=== PATIENT | female | born 1970 ===

== ENCOUNTER 2017-10-06 22:23 | Observation (INO) | payer SELFPAY ==
[2017-10-06] MEDS ORDERED: Sodium Chloride 0.9% 1,000 ML IV STA (22:50)
[2017-10-06] MEDS ORDERED: Iohexol 240 (50 ml) PO ONE (22:50)
--- NOTE | 2017-10-06 22:56 | ED PDOC ---
HPI: Abdomen Time Seen by Provider: 10/06/17 22:36 Chief Complaint (Nursing): Abdominal Pain Chief Complaint (Provider): abdominal pain History Per: Patient History/Exam Limitations: no limitations Onset/Duration Of Symptoms: Days (2) Current Symptoms Are (Timing): Still Present Location Of Pain/Discomfort: RLQ Additional History Per: Patient Additional Complaint(s): 46 y/o female presents with abdominal pain x 2 days. States pain initially started in epigastric/periumbilical area and has since traveled to right lower abdomen as of tonight. Denies fever, nausea/vomiting, cough, chest pain, shortness of breath, palpitations, changes in bowel movements, urinary symptoms. Past Medical History Reviewed: Historical Data, Nursing Documentation, Vital Signs Vital Signs: Last Vital Signs Temp 98.9 F 10/06/17 22:27 Pulse 85 10/06/17 22:27 Resp 16 10/06/17 22:27 BP 142/82 10/06/17 22:27 Pulse Ox 100 10/07/17 02:11 - Medical History PMH: No Chronic Diseases - Surgical History Surgical History: No Surg Hx - Family History Family History: States: No Known Family Hx - Home Medications Home Medications: Ambulatory Orders Medication Instructions Recorded No Known Home Med 10/07/17 - Allergies Allergies/Adverse Reactions: Allergies Allergy/AdvReac Type Severity Reaction Status Date / Time No Known Allergies Allergy Verified 10/06/17 22:31 Review of Systems ROS Statement: Except As Marked, All Systems Reviewed And Found Negative Gastrointestinal: Positive for: Abdominal Pain Physical Exam - Reviewed Nursing Documentation Reviewed: Yes Vital Signs Reviewed: Yes - Physical Exam Appears: Positive for: Well, Non-toxic, No Acute Distress Head Exam: Positive for: ATRAUMATIC, NORMAL INSPECTION, NORMOCEPHALIC Skin: Positive for: Normal Color Eye Exam: Positive for: Normal appearance ENT: Positive for: Normal ENT Inspection Cardiovascular/Chest: Positive for: Regular Rate, Rhythm Respiratory: Positive for: Normal Breath Sounds Gastrointestinal/Abdominal: Positive for: Bowel Sounds, Soft, Tenderness ( epigastric, rlq) Back: Positive for: Normal Inspection Extremity: Positive for: Normal ROM Neurologic/Psych: Positive for: Alert, Oriented - Laboratory Results Result Diagrams: 10/06/17 23:25 10/06/17 23:25 - ECG ECG: Positive for: Viewed By Me (reviewed by ED attending) ECG Rhythm: Positive for: Sinus Rhythm O2 Sat by Pulse Oximetry: 100 Pulse Ox Interpretation: Normal - Radiology X-Ray: Viewed By Me X-Ray Interpretation: No Acute Disease - Progress ED Course And Treament: labs, urine, CT abd/pelvis, IV fluids, IV toradol EXAM: CT Abdomen and Pelvis With Intravenous Contrast EXAM DATE/TIME: Exam ordered 10/06/2017 10:51 PM CLINICAL HISTORY: 46 years old, female; Pain; Abdominal pain; Localized; Right; Additional info: Abd pain TECHNIQUE: Axial computed tomography images of the abdomen and pelvis with intravenous contrast. All CT scans at this facility use one or more dose reduction techniques, viz.: automated exposure control; ma/kV adjustment per patient size (including targeted exams where dose is matched to indication; i.e. head); or iterative reconstruction technique. Coronal and sagittal reformatted images were created and reviewed. CONTRAST: 90 mL of administered intravenously. COMPARISON: No relevant prior studies available. FINDINGS: Lower thorax: Atelectasis or fibrosis right base. Right-sided pulmonary nodules with some calcium. ABDOMEN: Liver: Fatty liver. Gallbladder and bile ducts: Unremarkable. No calcified stones. No ductal dilation. Pancreas: Unremarkable. No mass. No ductal dilation. Spleen: Unremarkable. No splenomegaly. Adrenals: Unremarkable. No mass. Kidneys and ureters: Unremarkable. No solid mass. No hydronephrosis. Stomach and bowel: Moderate fecal retention. Diverticulosis no diverticulitis. No obstruction. Appendix: The appendix measures 8 mm. there is mucosal enhancement and minimal periappendiceal stranding. Correlate clinically for signs of early appendicitis. PELVIS: Bladder: Unremarkable. No mass. Reproductive: Unremarkable as visualized. ABDOMEN and PELVIS: Intraperitoneal space: A sliver free fluid in the pelvis is presumably physiologic. No free air. Bones/joints: Degenerative change in the spine. No acute fracture. No dislocation. Soft tissues: Fat-containing umbilical hernia. Vasculature: Unremarkable. No abdominal aortic aneurysm. Lymph nodes: Unremarkable. No enlarged lymph nodes. IMPRESSION: The appendix measures 8 mm. there is mucosal enhancement and minimal periappendiceal stranding. Correlate clinically for signs of early appendicitis. Case discussed with Dr. Narvaez, Surgeon on-call; will place in observation under her service IV Cefoxitin dose ordered. Dr. Hill, enrollment services vice president on-call, aware. Disposition - Clinical Impression Clinical Impression: Appendicitis - Patient ED Disposition Is Patient to be Admitted: Yes - Disposition Disposition Time: 02:00 Condition: FAIR - Pt Status Changed To: Hospital Disposition Of: Observation
[2017-10-06] MEDS ORDERED: Iohexol 240 (50 ml) ONE (23:06)
[2017-10-06 23:32] LABS: BASO # 0.1 K/uL (0.0-0.2); BASO % 0.5 % (0.0-2.0); EOS # 0.7 K/uL (0.0-0.7); EOS % 6.1 % (0.0-4.0); HEMATOCRIT 39.3 % (34.0-47.0); LYMPH # 4.6 K/uL (1.0-4.3); LYMPH % 41.1 % (20.0-40.0); MEAN CELL VOLUME 95.1 fl (81.0-99.0); MEAN CORPUSCULAR HEMOGLOBIN 31.7 pg (27.0-31.0); MEAN CORPUSCULAR HGB CONC 33.3 g/dL (33.0-37.0); MEAN PLATELET VOLUME 8.7 fl (7.2-11.7); MONO # 0.5 K/uL (0.0-0.8); MONO % 4.7 % (0.0-10.0); NEUT # 5.3 K/uL (1.8-7.0); NEUT % 47.6 % (50.0-75.0); NRBC % 0.1 % (0.0-0.0); RED CELL DISTRIBUTION WIDTH 13.1 % (11.5-14.5); WHITE BLOOD COUNT 11.1 K/uL (4.8-10.8)
[2017-10-06 23:41] LABS: ALB/GLOB RATIO 1.2 (1.0-2.1); ALKALINE PHOSPHATASE 108 U/L (38-126); ALT/SGPT 100 U/L (9-52); AST/SGOT 46 U/L (14-36); BILIRUBIN,TOTAL 0.2 mg/dl (0.2-1.3); BLOOD UREA NITROGEN 6 mg/dl (7-17); CARBON DIOXIDE 24 mmol/L (22-30); CHLORIDE 104 mmol/L (98-107); GFR AFRICAN-AMERICAN > 60; GLUCOSE,RANDOM 140 mg/dL (65-105); LIPASE 86 U/L (23-300); POTASSIUM 3.7 MMOL/L (3.6-5.0); SODIUM 140 mmol/l (132-148); TOTAL PROTEIN 7.9 G/DL (6.3-8.2)
[2017-10-07 00:46] LABS: PARTIAL THROMBOPLASTIN TIME 36.6 Seconds (25.6-37.1)
[2017-10-07] MEDS ORDERED: Iohexol 300 100 ML IJ ONE (01:09)
[2017-10-07 01:45] LABS: URINE BILIRUBIN NEGATIVE (NEGATIVE); URINE COLOR YELLOW (YELLOW); URINE GLUCOSE (UA) NEGATIVE (Normal)
[2017-10-07 01:46] LABS: PH,URINE 6.5 (5.0-8.0); RBC URINE 2 /hpf (0-3); URINE BACTERIA FEW (<OCC); URINE BLOOD TRACE (NEGATIVE); URINE KETONE NEGATIVE (NEGATIVE); URINE LEUKOCYTE ESTERASE NEGATIVE Leu/uL (Negative); URINE PROTEIN 30 mg/dL (NEGATIVE); WBC URINE 1 /hpf (0-5)
[2017-10-07] MEDS ORDERED: cefOXitin 2 GM in Sodium Chloride 0.9% 100 ML IVPB STA (02:14)
[2017-10-07] MEDS: Sodium Chloride 0.9% 1,000 ML IV SCH ×2 (02:51→11:17)
--- NOTE | 2017-10-07 07:52 | CP.PCM.HP ---
History of Present Illness - History of Present Illness History of Present Illness: General surgery H & P for Dr Raymond Valdez, PGY-1 Pt S & E at bedside. 46F w/no sig PMH admitted for abdominal pain x 2 days. Pain started in epigastric region, moved to periumbilical and RLQ. Pain is moderate-severe, intermittent, non radiating. Denies N & V, F &C, chest pain, SOB, palpitations, changes in bowel habits, urinary symptoms, hunger, other symptoms. In ED- CT abdomen positive for appendix 8mm, mucosal enhancement, minimal periappendiceal stranding. Correlate clinically for signs of early appendicitis. PMH: Denies PSH: Denies All: NKDA SH: Denies ETOH, tobacco or illicit drug use Present on Admission - Present on Admission Any Indicators Present on Admission: No History of DVT/PE: No History of Uncontrolled Diabetes: No Urinary Catheter: No Decubitus Ulcer Present: No Review of Systems - Review of Systems All systems: reviewed and no additional remarkable complaints except - Constitutional Constitutional: absent: Chills, Fever - Gastrointestinal Gastrointestinal: Abdominal Pain. 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 mid chest surgery?-14 yrs ago - ANESTHESIA Hx Anesthesia: Yes Hx Anesthesia Reactions: No Meds Allergies/Adverse Reactions: Allergies Allergy/AdvReac Type Severity Reaction Status Date / Time No Known Allergies Allergy Verified 10/06/17 22:31 Physical Exam - Constitutional Appears: Non-toxic, No Acute Distress - Head Exam Head Exam: ATRAUMATIC, NORMAL INSPECTION, NORMOCEPHALIC - Eye Exam Eye Exam: EOMI, Normal appearance - ENT Exam ENT Exam: Mucous Membranes Moist, Normal Exam - Neck Exam Neck exam: Positive for: Full Rom, Normal Inspection - Respiratory Exam Respiratory Exam: NORMAL BREATHING PATTERN - Cardiovascular Exam Cardiovascular Exam: REGULAR RHYTHM, +S1, +S2 - GI/Abdominal Exam GI & Abdominal Exam: Guarding (RLQ), Soft, Tenderness (RLQ). absent: Distended (obese), Rigid - Extremities Exam Extremities exam: Positive for: normal inspection - Neurological Exam Neurological exam: Alert, CN II-XII Intact, Oriented x3 - Psychiatric Exam Psychiatric exam: Normal Affect, Normal Mood - Skin Skin Exam: Dry, Intact, Normal Color, Warm Results - Vital Signs Recent Vital Signs: Last Vital Signs Temp 98.1 F 10/07/17 03:59 Pulse 67 10/07/17 03:59 Resp 19 10/07/17 03:59 BP 147/88 10/07/17 03:59 Pulse Ox 96 10/07/17 03:59 - Labs Result Diagrams: 10/06/17 23:25 10/06/17 23:25 Labs: Laboratory Results - last 24 hr 10/06/17 10/06/17 10/06/17 23:14 23:25 23:25 WBC 11.1 H RBC 4.13 Hgb 13.1 Hct 39.3 MCV 95.1 MCH 31.7 H MCHC 33.3 RDW 13.1 Plt Count 198 MPV 8.7 Neut % (Auto) 47.6 L Lymph % (Auto) 41.1 H [place] % (Auto) 4.7 Eos % (Auto) 6.1 H Baso % (Auto) 0.5 Neut # 5.3 Lymph # 4.6 H [place] # 0.5 Eos # 0.7 Baso # 0.1 PT INR APTT Sodium 140 Potassium 3.7 Chloride 104 Carbon Dioxide 24 Anion Gap 16 BUN 6 L Creatinine 0.5 L Est GFR ( Amer) > 60 Est GFR (Non-Af Amer) > 60 Random Glucose 140 H Calcium 9.0 Total Bilirubin 0.2 AST 46 H ALT 100 H Alkaline Phosphatase 108 Total Protein 7.9 Albumin 4.4 Globulin 3.5 Albumin/Globulin Ratio 1.2 Lipase 86 Urine Color Yellow Urine Clarity Clear Urine pH 6.5 Ur Specific [place] 1.015 Urine Protein 30 Urine Glucose (UA) Negative Urine Ketones Negative Urine Blood Trace Urine Nitrate Negative Urine Bilirubin Negative Urine Urobilinogen 1.0 Ur Leukocyte Esterase Negative Urine RBC (Auto) 2 Urine Microscopic WBC 1 Ur Squamous Epith Cells 4 Urine Bacteria Few H 10/06/17 23:25 WBC RBC Hgb Hct MCV MCH MCHC RDW Plt Count MPV Neut % (Auto) Lymph % (Auto) [place] % (Auto) Eos % (Auto) Baso % (Auto) Neut # Lymph # [place] # Eos # Baso # PT 12.7 INR 1.1 APTT 36.6 Sodium Potassium Chloride Carbon Dioxide Anion Gap BUN Creatinine Est GFR ( Amer) Est GFR (Non-Af Amer) Random Glucose Calcium Total Bilirubin AST ALT Alkaline Phosphatase Total Protein Albumin Globulin Albumin/Globulin Ratio Lipase Urine Color Urine Clarity Urine pH Ur Specific [place] Urine Protein Urine Glucose (UA) Urine Ketones Urine Blood Urine Nitrate Urine Bilirubin Urine Urobilinogen Ur Leukocyte Esterase Urine RBC (Auto) Urine Microscopic WBC Ur Squamous Epith Cells Urine Bacteria Assessment & Plan - Assessment and Plan (Free Text) Assessment: 46F w/no sig PMH admitted for abdominal pain, likely due to appendicitis Plan: Admit to surgical service NPO Pain mgmt Anti-emetic IVF ABx Plan for OR later today DW attending Courtney, PGY-1 - Date & Time Date: 10/07/17 Time: 07:50 Decision To Admit - Pt Status Changed To: Hospital Disposition Of: Observation - . Bed Request Type: Med/Surg Admitting Physician: Lucrecia Narvaez
--- NOTE | 2017-10-07 08:20 | RAD ---
HISTORY: admit COMPARISON: No prior. TECHNIQUE: Chest PA and lateral FINDINGS: LUNGS: No acute infiltrate is identified bilaterally. Fibrotic changes in the left greater than right pulmonary apices suspicious for prior granulomatous disease. Clinically correlate. PLEURA: No significant pleural effusion identified. No pneumothorax apparent. CARDIOVASCULAR: Normal. OSSEOUS STRUCTURES: No significant abnormalities. VISUALIZED UPPER ABDOMEN: Normal. OTHER FINDINGS: None. IMPRESSION: Biapical fibrotic changes without definite acute infiltrate or pleural effusion appreciable. No pneumothorax bilaterally.
[2017-10-07] MEDS: Piperacillin/Tazobact 3.375 GM in Sodium Chloride 0.9% 100 ML IVPB SCH ×2 (10:00→16:19)
[2017-10-07] MEDS ORDERED: Influenza Vaccine 18yr & older 0.5 ML/45 MCG SYR IM ONE (10:00)
--- NOTE | 2017-10-07 11:21 | CT ---
PROCEDURE: CT Abdomen and Pelvis with contrast HISTORY: abd pain COMPARISON: None. TECHNIQUE: Contrast dose: Omnipaque 300, 90 cc Radiation dose: Total exam DLP = 603.73 mGy-cm. This CT exam was performed using one or more of the following dose reduction techniques: Automated exposure control, adjustment of the mA and/or kV according to patient size, and/or use of iterative reconstruction technique. FINDINGS: LOWER THORAX: Calcified pleural plaques are identified at the right basilar pleura with somewhat nodular fibrotic changes at the right lower lobe posteriorly. LIVER: Diminished attenuation is seen throughout the liver indicating diffuse fatty infiltration without focal mass evident. GALLBLADDER AND BILE DUCTS: Appears distended but is otherwise unremarkable. PANCREAS: Unremarkable. No gross lesion or ductal dilatation. SPLEEN: Unremarkable. ADRENALS: Unremarkable. No mass. KIDNEYS AND URETERS: Unremarkable. No hydronephrosis. No solid mass. VASCULATURE: Unremarkable. No aortic aneurysm. BOWEL: Moderate fecal loading seen throughout the colon without impaction evident . APPENDIX: The appendix appears somewhat prominent measuring 8 mm with mucosal enhancement and borderline periappendiceal reaction. No free air or extravasated oral contrast material. The appendix is not opacified with oral contrast material either. Clinically correlate for possible appendicitis nevertheless. PERITONEUM: Unremarkable. No free fluid. No free air. LYMPH NODES: Unremarkable. No enlarged lymph nodes. BLADDER: Unremarkable. REPRODUCTIVE: Unremarkable. BONES: No acute fracture. OTHER FINDINGS: None. IMPRESSION: Potential CT pattern of appendicitis. Clinically correlate further. Hepatic steatosis. Concordant preliminary report from [facility], 10/07/2017.
[2017-10-07] MEDS ORDERED: Succinylcholine 200 mg/10 ml Inj IV ONE (11:41)
[2017-10-07] MEDS ORDERED: Rocuronium 10 mg/ml (5 ml) ONE (11:41)
[2017-10-07] MEDS ORDERED: Propofol 10 mg/ml Inj (20 ML) ONE (11:41)
[2017-10-07] MEDS ORDERED: Lidocaine 4% (Laryng-O-Jet) Kit MM ONE (11:41)
[2017-10-07] MEDS ORDERED: Phenylephrine 10 mg/ml Inj ONE (11:41)
[2017-10-07] MEDS ORDERED: Lidocaine 2% MPF (5 ml) Inj ONE (11:42)
[2017-10-07] MEDS ORDERED: Dexamethasone 4 mg/1 ml ONE (11:46)
[2017-10-07] MEDS ORDERED: Midazolam 2 MG/2 ML VIAL ONE (11:58)
[2017-10-07] MEDS ORDERED: Lactated Ringer's 1,000 ML IV ONE ×2 (12:42→14:00)
--- NOTE | 2017-10-07 12:56 | PCM.SURG1 ---
Surgeon's Initial Post Op Note - Surgeon's Notes Surgeon: Dr. Narvaez Process Improvement Consultant: Dr. Lee PGY2, Dr. Valdez PGY1 Type of Anesthesia: General Endo Pre-Operative Diagnosis: Acute Appendicitis Operative Findings: See Operative Note Post-Operative Diagnosis: Acute Appendicitis Operation Performed: Laparoscopic Appendectomy Specimen/Specimens Removed: Appendix Estimated Blood Loss: EBL {In ML}: 10 Blood Products Given: N/A Drains Used: No Drains Post-Op Condition: Good Date of Surgery/Procedure: 10/07/17 Time of Surgery/Procedure: 12:56
--- NOTE | 2017-10-07 15:51 | CARD ---
APPROVED REPORT EKG Measurement Heart [id number] <Conclusion> Normal sinus rhythm Normal ECG
[2017-10-07] MEDS: Lactated Ringer's 1,000 ML IV SCH (23:00)
[2017-10-08] MEDS: Piperacillin/Tazobact 3.375 GM in Sodium Chloride 0.9% 100 ML IVPB SCH ×2 (00:18→09:11)
[2017-10-08] MEDS: Lactated Ringer's 1,000 ML IV SCH ×2 (06:14→09:14)
--- NOTE | 2017-10-08 07:26 | CP.PCM.PN ---
Subjective - Date & Time of Evaluation Date of Evaluation: 10/08/17 Time of Evaluation: 07:23 - Subjective Subjective: patient given pain meds 2 hours ago for ear pain. There is no pain now. no hearing loss ears: r ear tube in place with d/c in canal. Thick tm No post auricular edema or buldging of pinna a/p: Mastoiditis cont abx as per ID Objective - Vital Signs/Intake and Output Vital Signs (last 24 hours): Temp Pulse Resp BP Pulse Ox 97.9 F 69 18 96/62 L 96 10/08/17 04:00 10/08/17 04:00 10/08/17 04:00 10/08/17 04:00 10/08/17 04:00 - Medications Medications: Current Medications Piperacillin Sod/Tazobactam (Sod 3.375 gm/ Sodium Chloride) 100 mls @ 100 mls/ hr IVPB Q8 ORA PRN Reason: Protocol Last Admin: 10/08/17 00:18 Dose: 100 mls/hr Sodium Chloride (Sodium Chloride 0.9%) 1,000 mls @ 125 mls/hr IV .Q8H [facility] Last Admin: 10/07/17 11:17 Dose: 125 mls/hr Lactated Ringer's (Lactated Ringer's) 1,000 mls @ 100 mls/hr IV .Q10H [facility] Last Admin: 10/08/17 06:14 Dose: 100 mls/hr Ketorolac Tromethamine (Toradol) 15 mg IVP Q6 PRN PRN Reason: Pain, moderate (4-7) Last Admin: 10/07/17 14:42 Dose: 15 mg Morphine Sulfate (Morphine) 2 mg IVP Q4 PRN PRN Reason: Pain, severe (8-10) Last Admin: 10/07/17 04:12 Dose: 2 mg Ondansetron HCl (Zofran Inj) 4 mg IVP Q4 PRN PRN Reason: Nausea/Vomiting - Labs Labs: 10/06/17 23:25 10/06/17 23:25 PT 12.7 Seconds (9.8-13.1) 10/06/17 23:25 INR 1.1 (0.9-1.2) 10/06/17 23:25 APTT 36.6 Seconds (25.6-37.1) 10/06/17 23:25
[2017-10-08 08:36] LABS: ALB/GLOB RATIO 1.1 (1.0-2.1); ALKALINE PHOSPHATASE 61 U/L (38-126); ALT/SGPT 116 U/L (9-52); AST/SGOT 71 U/L (14-36); BILIRUBIN,TOTAL 0.3 mg/dl (0.2-1.3); BLOOD UREA NITROGEN 13 mg/dl (7-17); CALCIUM 8.9 mg/dL (8.4-10.2); CARBON DIOXIDE 24 mmol/L (22-30); CHLORIDE 105 mmol/L (98-107); GFR AFRICAN-AMERICAN > 60; GLUCOSE,RANDOM 135 mg/dL (65-105); SODIUM 138 mmol/l (132-148); TOTAL PROTEIN 6.6 G/DL (6.3-8.2)
[2017-10-08 08:38] LABS: BASO % 0.1 % (0.0-2.0); LYMPH % 14.7 % (20.0-40.0); MEAN CELL VOLUME 95.2 fl (81.0-99.0); MEAN CORPUSCULAR HEMOGLOBIN 31.2 pg (27.0-31.0); MEAN CORPUSCULAR HGB CONC 32.8 g/dL (33.0-37.0); MEAN PLATELET VOLUME 9.1 fl (7.2-11.7); MONO # 0.4 K/uL (0.0-0.8); NEUT # 11.1 K/uL (1.8-7.0); NEUT % 82.2 % (50.0-75.0); NRBC % 0.1 % (0.0-0.0); RED CELL DISTRIBUTION WIDTH 12.7 % (11.5-14.5); WHITE BLOOD COUNT 13.5 K/uL (4.8-10.8)
--- NOTE | 2017-10-08 09:14 | CP.PCM.DIS ---
Provider - Provider Date of Admission: 10/07/17 02:16 Attending physician: Lucrecia Narvaez MD Primary care physician: Dr. Narvaez- general surgery service Consults: None Time Spent in preparation of Discharge (in minutes): 35 Hospital Course - Lab Results Lab Results: Micro Results 10/06/17 23:14 Urine,Clean Catch Urine Culture - Final No Growth (<1,000 CFU/ML) 10/07/17 02:45 Blood Blood Culture - Preliminary NO GROWTH AFTER 24 HOURS Most Recent Lab Values WBC 13.5 K/uL (4.8-10.8) H 10/08/17 06:30 RBC 3.36 Mil/uL (3.80-5.20) L 10/08/17 06:30 Hgb 10.5 g/dL (12.0-16.0) L D 10/08/17 06:30 Hct 32.0 % (34.0-47.0) L 10/08/17 06:30 MCV 95.2 fl (81.0-99.0) 10/08/17 06:30 MCH 31.2 pg (27.0-31.0) H 10/08/17 06:30 MCHC 32.8 g/dL (33.0-37.0) L 10/08/17 06:30 RDW 12.7 % (11.5-14.5) 10/08/17 06:30 Plt Count 204 K/uL (130-400) 10/08/17 06:30 MPV 9.1 fl (7.2-11.7) 10/08/17 06:30 Neut % (Auto) 82.2 % (50.0-75.0) H 10/08/17 06:30 Lymph % (Auto) 14.7 % (20.0-40.0) L 10/08/17 06:30 [place] % (Auto) 3.0 % (0.0-10.0) 10/08/17 06:30 Eos % (Auto) 0.0 % (0.0-4.0) 10/08/17 06:30 Baso % (Auto) 0.1 % (0.0-2.0) 10/08/17 06:30 Neut # 11.1 K/uL (1.8-7.0) H 10/08/17 06:30 Lymph # 2.0 K/uL (1.0-4.3) 10/08/17 06:30 [place] # 0.4 K/uL (0.0-0.8) 10/08/17 06:30 Eos # 0.0 K/uL (0.0-0.7) 10/08/17 06:30 Baso # 0.0 K/uL (0.0-0.2) 10/08/17 06:30 PT 12.7 Seconds (9.8-13.1) 10/06/17 23:25 INR 1.1 (0.9-1.2) 10/06/17 23:25 APTT 36.6 Seconds (25.6-37.1) 10/06/17 23:25 Sodium 138 mmol/l (132-148) 10/08/17 06:30 Potassium 4.0 MMOL/L (3.6-5.0) 10/08/17 06:30 Chloride 105 mmol/L (98-107) 10/08/17 06:30 Carbon Dioxide 24 mmol/L (22-30) 10/08/17 06:30 Anion Gap 13 (10-20) 10/08/17 06:30 BUN 13 mg/dl (7-17) 10/08/17 06:30 Creatinine 0.7 mg/dl (0.7-1.2) 10/08/17 06:30 Est GFR ( Amer) > 60 10/08/17 06:30 Est GFR (Non-Af Amer) > 60 10/08/17 06:30 Random Glucose 135 mg/dL (65-105) H 10/08/17 06:30 Calcium 8.9 mg/dL (8.4-10.2) 10/08/17 06:30 Total Bilirubin 0.3 mg/dl (0.2-1.3) 10/08/17 06:30 AST 71 U/L (14-36) H D 10/08/17 06:30 ALT 116 U/L (9-52) H 10/08/17 06:30 Alkaline Phosphatase 61 U/L (38-126) 10/08/17 06:30 Total Protein 6.6 G/DL (6.3-8.2) 10/08/17 06:30 Albumin 3.4 g/dL (3.5-5.0) L D 10/08/17 06:30 Globulin 3.2 gm/dL (2.2-3.9) 10/08/17 06:30 Albumin/Globulin Ratio 1.1 (1.0-2.1) 10/08/17 06:30 Lipase 86 U/L (23-300) 10/06/17 23:25 Urine Color Yellow (YELLOW) 10/06/17 23:14 Urine Clarity Clear (Clear) 10/06/17 23:14 Urine pH 6.5 (5.0-8.0) 10/06/17 23:14 Ur Specific [place] 1.015 (1.003-1.030) 10/06/17 23:14 Urine Protein 30 mg/dL (NEGATIVE) 10/06/17 23:14 Urine Glucose (UA) Negative mg/dL (Normal) 10/06/17 23:14 Urine Ketones Negative mg/dL (NEGATIVE) 10/06/17 23:14 Urine Blood Trace (NEGATIVE) 10/06/17 23:14 Urine Nitrate Negative (NEGATIVE) 10/06/17 23:14 Urine Bilirubin Negative (NEGATIVE) 10/06/17 23:14 Urine Urobilinogen 1.0 mg/dL (0.2-1.0) 10/06/17 23:14 Ur Leukocyte Esterase Negative Santy/uL (Negative) 10/06/17 23:14 Urine RBC (Auto) 2 /hpf (0-3) 10/06/17 23:14 Urine Microscopic WBC 1 /hpf (0-5) 10/06/17 23:14 Ur Squamous Epith Cells 4 /hpf (0-5) 10/06/17 23:14 Urine Bacteria Few (<OCC) H 10/06/17 23:14 - Hospital Course Hospital Course: 46F w/no sig PMH admitted for abdominal pain x [address] abdomen positive for appendix 8mm, mucosal enhancement, minimal periappendiceal stranding- early appendicitis diagnosed. Pt went for laparoscopic appendectomy on hospital day 2 , tolerated procedure well. Pain well controlled post op, tolerated diet. Minimal increase in leukocytosis post op- to be expected. Pt stable and ready for discharge home. Pt to follow up with Dr. Narvaez in 2 weeks post op. Instructions as per discharge orders. - Date & Time of H&P Date of H&P: 10/07/17 Time of H&P: 07:49 Discharge Exam - Head Exam Head Exam: ATRAUMATIC, NORMAL INSPECTION, NORMOCEPHALIC - Eye Exam Eye Exam: EOMI, Normal appearance - ENT Exam ENT Exam: Mucous Membranes Moist, Normal Exam - Neck Exam Neck exam: Full Rom - Respiratory Exam Respiratory Exam: NORMAL BREATHING PATTERN, UNREMARKABLE - Cardiovascular Exam Cardiovascular Exam: REGULAR RHYTHM, +S1, +S2 - GI/Abdominal Exam GI & Abdominal Exam: Soft, Tenderness (minimal, along incision sites). absent: Distended, Guarding, Hernia, Rebound, Rigid - Extremities Exam Extremities exam: normal inspection - Neurological Exam Neurological exam: Alert, CN II-XII Intact, Oriented x3 - Psychiatric Exam Psychiatric exam: Normal Affect, Normal Mood - Skin Skin Exam: Dry, Intact, Normal Color, Warm Discharge Plan - Follow Up Plan Condition: FAIR Disposition: HOME/ ROUTINE Instructions: Appendicitis (DC), Laparoscopic Appendectomy (DC) Additional Instructions: Please return to hospital if you have fevers or chills. You may remove the larger bandaids tomorrow and shower. Under the bandaids, you have special tape , do not pull this off, it will fall off on it's own. Wash gently with soap and water. Do not bathe or get into hot tubs/soak in water. Follow up with Dr. Narvaez in her office in 2 weeks. Referrals: Lucrecia Narvaez MD [Staff Provider] -
[2017-10-08 13:16] VITALS: BP 134/67; PULSE 71; RESP 18; TEMP 97.7; O2SAT 98
--- NOTE | 2017-10-11 14:28 | OP ---
PROCEDURE DATE: 10/07/2017 SURGEON: Lucrecia Narvaez MD. COUNTERINTELLIGENCE SPECIALIST: Dr. Lee and Dr. Valdez. ANESTHESIA: General. PREOPERATIVE DIAGNOSIS: Acute appendicitis. POSTOPERATIVE DIAGNOSIS: Acute appendicitis PROCEDURE: Laparoscopic appendectomy. DESCRIPTION OF OPERATION: With the patient in the supine position under adequate general anesthesia, the abdomen was prepped and draped in the usual sterile manner. Veress needle puncture was performed at the umbilicus with insufflation to 15 cm water pressure of CO2 and a 5 mm laparoscopic trocar was inserted via an infraumbilical incision. Under direct vision, 5 mm and 12 mm trocars were inserted in the left lower quadrant. The appendix was visualized. It was dilated and appeared acutely inflamed. The appendix was gently elevated and the mesoappendix was dissected and divided using an Endo-CAMILA stapler. The appendix itself was then divided close to the cecum also using the Endo-CAMILA stapler. The stump was inspected for hemostasis. The area of the appendiceal artery was reinforced with Hemoclips. The appendix was placed in a specimen retrieval bag and removed via the 12 mm port site. The right gutter and pelvis were irrigated and suctioned and the pneumoperitoneum was released and the trocars were removed. The 12 mm port site was closed with [id number] fascial suture of 0 Vicryl. All incisions were closed with 4-0 Monocryl, subcuticular sutures, and Steri-Strips. Dry sterile dressings were applied. The patient tolerated the procedure well and transferred to recovery room in stable condition. ESTIMATED BLOOD LOSS FOR THE PROCEDURE: 10 mL. Lucrecia [facility]vaez MD [facility]
== END 2017-10-08 16:00 | disposition home or self-care (01) ==
LOC: H.ER 22:23 → H.ERHOLD 10-07 02:16 → H.MEDSURG1 10-07 03:36
PROVIDERS: ADMIT Specialist; ATTEND Specialist
DX: K35.80 Unspecified acute appendicitis (principal)
CPT/HCPCS: 36415; 44970; 71020; 74177; 80053; 81003; 81025; 83690; 85025; 85610; 85730; 87040; 87086; 88304; 93005; 96365; 99283; G0378; J0330; J0694; J1100; J1885; J2250; J2270; J2370; J2405; J2543; J2704; J2765; J3010; J7040; J7120; Q9966; Q9967

== ENCOUNTER 2018-04-26 14:39 | Emergency (ER) | payer SELFPAY ==
[2018-04-26 15:23] VITALS: O2SAT 98
--- NOTE | 2018-04-26 16:25 | ED PDOC ---
HPI: Female Pain Time Seen by Provider: 04/26/18 15:31 Chief Complaint (Nursing): Female Genitourinary Chief Complaint (Provider): Dysuria, Frequency, Abdominal Pain History Per: Patient History/Exam Limitations: no limitations Onset/Duration Of Symptoms: Days (x5) Current Symptoms Are (Timing): Still Present Additional Complaint(s): 47 y/o female with no significant PMHx presenting for evaluation of urinary frequency, dysuria, and superpubic pain x5 days. Patient denies any fever, nausea, vomiting, constipation, melena, hematocheznia, or diarrhea. Reports h/o abdominal surgery - appendectomy. Past Medical History Reviewed: Historical Data, Nursing Documentation, Vital Signs Vital Signs: Last Vital Signs Temp 98.0 F 04/26/18 15:20 Pulse 76 04/26/18 15:20 Resp 18 04/26/18 15:20 BP 137/82 04/26/18 15:20 Pulse Ox 98 04/26/18 15:20 - Medical History PMH: No Chronic Diseases - Surgical History Surgical History: No Surg Hx - Family History Family History: States: Unknown Family Hx - Immunization History Hx Tetanus Toxoid Vaccination: No Hx Influenza Vaccination: No Hx Pneumococcal Vaccination: No - Home Medications Home Medications: Ambulatory Orders Medication Instructions Recorded Nitrofurantoin Macrocrystals 100 mg PO BID #20 cap 04/26/18 [Macrobid] Phenazopyridine [Pyridium] 200 mg PO BID #6 tab 04/26/18 - Allergies Allergies/Adverse Reactions: Allergies Allergy/AdvReac Type Severity Reaction Status Date / Time No Known Allergies Allergy Verified 10/06/17 22:31 Review of Systems ROS Statement: Except As Marked, All Systems Reviewed And Found Negative Constitutional: Negative for: Fever Gastrointestinal: Positive for: Abdominal Pain. Negative for: Nausea, Vomiting , Diarrhea Genitourinary Female: Positive for: Dysuria, Frequency Physical Exam - Reviewed Nursing Documentation Reviewed: Yes Vital Signs Reviewed: Yes - Physical Exam Comments: GENERAL APPEARANCE: Patient is awake, alert, oriented x 3, smiling, in no painful distress. SKIN: Warm, dry; (-) cyanosis. EYES: (-) conjunctival pallor, (-) scleral icterus. ENMT: Mucous membranes moist. NECK: (-) tenderness, (-) stiffness, (-) lymphadenopathy. CHEST AND RESPIRATORY: (-) rales, (-) rhonchi, (-) wheezes; breath sounds equal bilaterally. HEART AND CARDIOVASCULAR: (-) irregularity; (-) murmur, (-) gallop. ABDOMEN AND GI: (-) distention. Bowel sounds active; (-) tenderness, (-) guarding, (-) rebound, (-) palpable masses, (-) CVA tenderness. EXTREMITIES: (-) deformity, (-) edema, (+) distal pulses. NEURO AND PSYCH: Mental status as above; (-) focal findings. - ECG O2 Sat by Pulse Oximetry: 98 (RA) Pulse Ox Interpretation: Normal Medical Decision Making Medical Decision Making: Plan : - udip - uhcg Uhcg (-) Udip : (+) small leuks UA and culture ordered and sent. Patient medicated with macrobid PO. Diagnostic results d/w the patient in great detail. Diagnosis of UTI d/w the patient. Based on history, exam and diagnostic results, plan will be for outpatient follow up. Patient instructed to follow-up with the clinic in 1-2 days without fail. Advised to take medication as prescribed. Return to the emergency room at any time for any new or worsening symptoms. Patient states she fully agrees with and understands discharge instructions. States that she agrees with the plan and disposition. Verbalized and repeated discharge instructions and plan. I have given the patient opportunity to ask any additional questions. Disposition - Clinical Impression Clinical Impression: Urinary tract infection - Patient ED Disposition Is Patient to be Admitted: No Counseled Patient/Family Regarding: Studies Performed, Diagnosis, Need For Followup, Rx Given - Disposition Referrals: [facility] [place] [Outside] Disposition: Routine/Home Disposition Time: 16:15 Condition: STABLE Additional Instructions: Winter por dejarnos atenderlo hoy. Usted fue tratado por last infeccin del tracto urinario. La atencin mdica de emergencia que recibi hoy estaba dirigida a yuliya sntomas agudos. Si le prescribieron algn medicamento, llnelo y tome segn las indicaciones. Yuliya sntomas pueden tardar varios easley en resolverse. Regrese al Departamento de Emergencia si yuliya sntomas empeoran, no mejoran o si tiene algn otro problema. Llame a jarocho de los mdicos / clnicas a los que hagan recomendado que se detallan en el formulario de Informacin de visita del paciente que se incluye en [place]. Traiga todos los documentos que recibi al momento del [place] junto con los medicamentos que est tomando en chavez visita de seguimiento. Nuestro tratamiento no puede reemplazar la atencin mdica en curso por parte de un proveedor de atencin primaria (PCP) fuera del departamento de emergencias. Winter por permitir que el equipo de [facility] [employer] sea parte de chavez cuidado hoy. Si se realiz last prueba de cultivo de orina: lo llamaremos para informarle cualquier resultado positivo Prescriptions: Nitrofurantoin Macrocrystals [Macrobid] 100 mg PO BID #20 cap Phenazopyridine [Pyridium] 200 mg PO BID #6 tab Instructions: Urinary Tract Infection, Adult (DC) Forms: [employer] (Chinese) Print Language: GUATEMAL[place] - PA / HOP SEPARATOR / Resident Statement / has reviewed & agrees with the documentation as recorded.
[2018-04-26 16:48] VITALS: BP 130/80; PULSE 96; RESP 19; TEMP 98.2
[2018-04-26 17:32] LABS: SQUAMOUS EPITHIAL 1 /hpf (0-5); URINE BACTERIA RARE (<OCC); URINE BILIRUBIN NEGATIVE (NEGATIVE); URINE BLOOD SMALL (NEGATIVE); URINE CLARITY CLEAR (Clear); URINE COLOR YELLOW (YELLOW); URINE GLUCOSE (UA) NEG (Normal); URINE LEUKOCYTE ESTERASE LARGE Leu/uL (Negative); URINE PROTEIN NEGATIVE (NEGATIVE); URINE UROBILINOGEN 0.2-1.0 mg/dL (0.2-1.0)
== END 2018-04-26 16:47 | disposition home or self-care (01) ==
LOC: H.ER 14:39
DX: N39.0 Urinary tract infection, site not specified (principal)